=== PATIENT | female | born 1950 | race Caucasian/White ===

== ENCOUNTER 2016-09-04 18:29 | Observation (INO) ==
--- NOTE | 2016-09-04 19:51 | Emergency Department Note ---
Disposition Clinical Impression: Calculus of kidney, UTI (urinary tract infection) Disposition: Admitted As Inpatient Condition: Good Forms: Work/School Release, ED Satisfaction Letter Time of Disposition: 21:29 General Adult HPI - General Chief complaint: ED Abdominal Pain Stated complaint: Flank pain Time Seen by Provider: 09/04/16 19:37 Source: patient Limitations: no limitations Nursing Notes Reviewed: Yes Vital Signs Reviewed: Yes - History of Present Illness HPI Narrative: 7 history of left-sided flank pain. It radiates into her abdomen. Associated nausea but no vomiting. There are no provoking or alleviating factors. Does have a history of kidney stones but states this does not feel as bad as the previous ones. No fevers but does report chills. Pain Scale: 6 - Related Data Home Medications Medication Instructions Recorded Confirmed Cholecalciferol (D-3) [Vitamin D] 1,000 unit PO DAILY 09/04/16 09/04/16 Multivit-Min/Iron/Folic/Lutein 1 tab PO DAILY 09/04/16 09/04/16 [Centrum Silver Women Tablet] Allergies Allergy/AdvReac Type Severity Reaction Status Date / Time No Known Allergies Allergy Verified 09/04/16 18:30 All systems ED: reviewed and negative except as stated. Constitutional: Reports: chills. Denies: fever ENT ED: Denies: congestion Cardiovascular: Denies: chest pain, palpitations, syncope Respiratory: Denies: cough, dyspnea Gastrointestinal: Reports: abdominal pain (Left-sided flank pain), nausea. Denies: vomiting, diarrhea, hematemesis, hematochezia Genitourinary: Denies: urgency, dysuria, frequency Musculoskeletal: Reports: back pain (Left flank) Neurological: Denies: headache, weakness, numbness, paresthesias Past Medical History - Past Medical History Medical history: Reports: no medical history Psychiatric history: Reports: no psych history - Social History Smoking Status: Current every day smoker Smokeless Tobacco Status: No Alcohol use: Reports: none Drug use: Reports: none Physical Exam - General Limitations: no limitations General appearance: alert, in no apparent distress - Head Head exam: atraumatic, normocephalic, normal inspection - Eye Eye exam: Present: normal appearance, PERRL. Absent: scleral icterus - ENT ENT exam: normal exam, normal oropharynx, mucous membranes moist - Neck Neck exam: Present: normal inspection, full ROM, trachea midline. Absent: tenderness, meningismus, lymphadenopathy - Chest Chest inspection: Present: normal inspection, symmetric chest wall rise. Absent : tenderness - Respiratory Respiratory exam: Present: normal lung sounds bilaterally. Absent: respiratory distress, wheezes - Cardiovascular Cardiovascular exam: Present: regular rate, normal rhythm, normal heart sounds - Abdominal Exam Abdominal exam: Present: soft, Non-Tender, normal bowel sounds. Absent: tenderness, distention, guarding, rigidity, organomegaly - Extremities Exam Extremities exam: Present: normal inspection, full ROM, normal capillary refill. Absent: tenderness, pedal edema - Back Exam Back exam: Present: normal inspection, full ROM, CVA tenderness (L). Absent: tenderness, CVA tenderness (R) - Neurological Exam Neurological exam: Present: alert, oriented X3 - Psychiatric Psychiatric exam: Present: normal affect, normal mood - Skin Skin exam: Present: warm, dry, intact, normal color Course Course Narrative: Female patient presenting to the emergency department complaining of left side pain. She is resting comfortably in bed. She states the pain began on Sunday. She did have an episode of diarrhea on Sunday that she took medication for. She said she has since had a very small bowel movement yesterday. She states the pain is in her back and radiates around to her side. She has associated chills and nausea with this. She has not vomited. She does have a history of one kidney stone previously. She states she passed this without any complications. - Reevaluation(s) Reevaluation #1: Patient has a UTI as well as several nonobstructing stones with left-sided hydronephrosis. I talked to Dr. Liu and we will admit patient for UTI and stones with hydronephrosis and begin patient on Rocephin. Patient is agreeable to this. Time: 22:11 - Consultations Consultation #1: Spoke with Dr Liu. he is agreable to admit to the medicine service and place the Pt on Rocephin. Time: 21:28 Vital Signs Temperature 97.6 F 09/04/16 18:30 Pulse Rate 105 09/04/16 18:30 Respiratory Rate 18 09/04/16 18:30 Blood Pressure 111/71 09/04/16 18:30 O2 Sat by Pulse Oximetry 96 09/04/16 18:30 Temperature 97.6 F 09/04/16 18:30 Pulse Rate 105 09/04/16 18:30 Respiratory Rate 18 09/04/16 18:30 Blood Pressure 111/71 09/04/16 18:30 O2 Sat by Pulse Oximetry 96 09/04/16 18:30 Oxygen Delivery Oxygen Delivery Room Air Medical Decision Making - Lab Data Lab Results 09/04/16 Range/Units 19:45 Urine Color Dark Yellow (Yellow) Urine Clarity Turbid A (Clear) Urine pH 6.0 (5.0-8.0) pH Units Ur Specific [place] 1.021 (1.010-1.025) Urine Protein >=300 H (Neg-Trace) mg/dL Urine Glucose (UA) Normal (Normal) mg/dL Urine Ketones Trace H (Negative) mg/dL Urine Blood Large H (Negative) Urine Nitrite Positive A (Negative) Urine Bilirubin Small H (Negative) Urine Urobilinogen Normal (Normal) mg/dL Ur Leukocyte Esterase Large H (Negative) Urine Microscopic WBC Present (0-3) per hpf Urine Bacteria Present (None-Few) per hpf RBC Casts Present H (None Seen) per lpf Ur Culture Indicated? YES A (NO)
[2016-09-04 19:53] LABS: Bilirubin,Urine Small (Negative); Blood,Urine Large (Negative); Clarity,Urine Turbid (Clear); Color,Urine Dark Yellow (Yellow); Glucose,Urine (UA) Normal (Normal); Ketones,Urine Trace mg/dL (Negative); Leukocyte Esterase,Urine Large (Negative); Nitrite,Urine Positive (Negative); Protein,Urine >=300 mg/dL (Neg-Trace); Specific Gravity,Urine 1.021 (1.010-1.025); Urobilinogen,Urine Normal (Normal)
[2016-09-04 20:05] LABS: Bacteria,Urine Present per hpf (None-Few); Red Blood Cell Casts,Urine Present per lpf (None Seen); WBC,Urine Present per hpf (0-3)
[2016-09-04] MEDS ORDERED: Ondansetron 4 MG/2 ML VIAL IVP ONE (20:06)
[2016-09-04] MEDS ORDERED: *HR* FentaNYL (PF) 100 MCG/2 ML VIAL IVP ONE ×2 (20:07→21:24)
[2016-09-04] MEDS ORDERED: 0.9 % Sodium Chloride 1,000 ML IVC ONE (20:11)
[2016-09-04 21:11] LABS: Basophils % 0.2 %; Eosinophils % 0.1 %; Hematocrit 34.4 % (35.3-44.9); Hemoglobin 11.9 g/dL (11.5-15.4); Immature Granulocytes % 0.4 % (0-4); Lymphocytes # 1.8 K/mcL (0.6-4.6); Lymphocytes % 16.3 %; Mean Corpuscular HGB Conc 34.6 g/dL (31.6-35.5); Mean Corpuscular Hemoglobin 30.7 pg (28.0-33.3); Mean Corpuscular Volume 88.9 fL (83.0-100.0); Mean Platelet Volume 11.3 fL (9.4-12.4); Monocytes # 0.7 K/mcL (0.0-1.3); Monocytes % 6.6 %; Neutrophils # 8.4 K/mcL (1.6-8.9); Platelet Count 164 K/mcL (140-400); Red Blood Count 3.87 M/mcL (3.82-4.97); Red Cell Distribution Width 12.8 % (11.5-14.5); Segmented Neutrophils % 76.4 %
--- NOTE | 2016-09-04 21:17 | Emergency Department Note ---
START Narrative - START START: I examined this patient and my medical decision-making was reviewed with the STAFF AIR TACTICAL OFFICER/PA/Advanced Practice Nurse/Resident Physician. I agree with the documented findings, disposition and treatment plan as described except to the extent set forth below.
[2016-09-04 21:24] LABS: BUN/Creatinine Ratio 19 (6-26); Blood Urea Nitrogen 17 mg/dL (7-20); eGFR For African Americans > 60 (> 60); eGFR For Non-African Americans > 60 (> 60)
[2016-09-04 21:26] LABS: Alanine Aminotransferase 13 Units/L (0-55); Albumin 2.7 g/dL (3.5-5.0); Albumin/Globulin Ratio 0.6 (1.1-2.2); Alkaline Phosphatase 77 Units/L (38-126); Aspartate Amino Transferase 13 Units/L (5-34); BUN/Creatinine Ratio 18 (6-26); Bilirubin,Total 0.9 mg/dL (0.2-1.2); Blood Urea Nitrogen 17 mg/dL (7-20); Calcium 8.5 mg/dL (8.6-10.8); Carbon Dioxide 22 mEq/L (19-29); Chloride 104 mEq/L (98-109); Globulin 4.4 g/dL (2.4-3.5); Glucose 101 mg/dL (70-99); Osmolality,Calculated 284 (280-300); Potassium 3.3 mEq/L (3.5-4.5); Sodium 136 mEq/L (136-145); Total Protein 7.1 g/dL (6.0-8.3); eGFR For African Americans > 60 (> 60); eGFR For Non-African Americans > 60 (> 60)
[2016-09-05] MEDS ORDERED: Ondansetron 4 MG/2 ML VIAL IVP PRN ×2 (00:52→13:39)
[2016-09-05] MEDS ORDERED: Naloxone 0.4 MG/ML INJ IVP PRN ×2 (00:52→13:39)
[2016-09-05] MEDS ORDERED: *HR* Morphine 2 MG/ML SYRINGE IVP PRN ×3 (00:52→13:39)
[2016-09-05] MEDS ORDERED: Acetaminophen 325 MG TABLET PO PRN ×2 (00:52→13:39)
[2016-09-05] MEDS ORDERED: 0.9 % Sodium Chloride w KCl 20 MEQ/1,000 ML MLS IVC SCH ×2 (01:00→13:39)
--- NOTE | 2016-09-05 01:08 | Internal Med History&Physical ---
Date of Encounter: 09/05/16 Time of Encounter: 00:25 Assessment and Plan (1) Calculus of kidney Current visit: Yes Status: Acute 1. Will hydrate with IV fluids. 2. Pain control and anti-emetic control with IV medications. 3. Consult urology. (2) Hydronephrosis Current visit: Yes Status: Acute 1. Pt will likely need cystoscopy with ureteral stent placement if she does not pass the stones. 2. Urology already consulted and Dr. Liu will see in the morning. Qualifiers: Hydronephrosis type: with renal calculous obstruction Qualified Code(s): N13.2 - Hydronephrosis with renal and ureteral calculous obstruction (3) UTI (urinary tract infection) Current visit: Yes Status: Acute 1. Urine cultured. 2. Continue IV antibiotics and adjust per culture results. Qualifiers: Urinary tract infection type: acute cystitis Hematuria presence: without hematuria Qualified Code(s): N30.00 - Acute cystitis without hematuria (4) DVT prophylaxis Current visit: Yes Status: Acute 1. Heparin SQ. Internal Medicine - H&P: HPI Chief complaint: nausea; vomiting; flank pain Admitted From: Emergency Dept Plans for Post Hospital Care: Home History of present illness: Ms. Barnard is a 66 year old female who presents with a 5-6 day history of protracted nausea, vomiting, flank pain, and mild dysuria. Symptoms progressed to the point of severe nausea and vomiting and flank pain today. She therefore came to the ER where she was seen and evaluated. Workup included a CT of abdomen and pelvis which revealed urolithiasis with hydronephrosis. Urinalysis also suggest possible UTI. Urology was contacted by ER who recommended admitting patient to hospitalist for medical treatment and consultation to urology for possible cystoscopy and stent placement. Upon my assessment of the patient, she feels much better after some fluids and antiemetic therapy. She reiterates the above history. She denies any fevers or chills. She has had significant nausea and vomiting as noted above. She has a history of kidney stones in the past, but she passed them on her own. Past Med Surg Social Fam HX - Past Medical History Attestation: Yes The following information was validated with the patient. Source: patient, old records reviewed Medical history: no medical history, other (history of kidney stones) Psychiatric history: no psych history - Past Surgical History Surgical History: hysterectomy - Social History Smoking Status: Current every day smoker Smokeless Tobacco Status: No Alcohol use: none Drug use: none Current living situation: Home Activity Level: Independent ambulation Recent Out of Country Travel Within the Last 8 Weeks: No - Family History Mother Living Status: Age at : 82 Cause of : Aspiration Pn. Hx Family Cardiac Disorders: Yes Hx Family Cancer: Yes Father Living Status: Age at : 84 Cause of : Unknown Hx Family Endocrine Disorder: Yes (DM) Internal Medicine - H&P: Meds Cholecalciferol (D-3) [Vitamin D] 1,000 unit PO DAILY 09/04/16 [History] Multivit-Min/Iron/Folic/Lutein [Centrum Silver Women Tablet] 1 tab PO DAILY [History] Allergies No Known Allergies Allergy (Verified 09/04/16 18:30) - Constitutional Constitutional: no chills, no fever(s) - EENT Eyes: no change in vision Ears: no ear pain, no tinnitus Nose, mouth and throat: no nasal congestion, no sinus pressure, no sore throat - Cardiovascular Cardiovascular ROS IM: no chest pain, no diaphoresis, no dyspnea - Respiratory Respiratory: no cough, no hemoptysis - Gastrointestinal Gastrointestinal: constipation, nausea, vomiting, no abdominal pain, no diarrhea , no hematemesis, no hematochezia, no melena - Genitourinary Genitourinary: dysuria, flank pain, no hematuria - Musculoskeletal Musculoskeletal ROS IM: no arthralgias, no muscle cramps - Integumentary Integumentary IM: no rash, no jaundice - Neurological Neurological ROS: no dizziness, no focal weakness, no frequent falls, no headache(s) - Endocrine Endocrine IM: no polydipsia, no polyuria - Hematologic/Lymphatic Hematologic/Lymphatic: no easy bruising, no lymphadenopathy - Allergic/Immunologic Allergic/Immunologic: no wheezing, no GI upset with certain foods - Constitutional Vitals: Temp Pulse Resp BP Pulse Ox 98.4 F 67 16 92/55 95 09/04/16 22:34 09/04/16 22:34 09/04/16 22:34 09/04/16 22:34 09/04/16 22:34 General appearance: Present: cooperative, A&O X 3, pleasant, no acute distress, answers questions appropriately - Head Head exam: Present: atraumatic, normal inspection - Expanded Head Exam Head exam expanded: Absent: abrasion, contusion - Eye Eye exam: Present: EOMI, normal appearance, PERRL. Absent: scleral icterus Pupils: Present: normal accommodation - ENT ENT exam: Present: mucous membranes dry, normal exam, normal oropharynx - Neck Neck exam general surgery: Present: full ROM, supple. Absent: lymphadenopathy, tenderness - Respiratory Respiratory exam: Present: CTAB. Absent: chest wall tenderness, rales, rhonchi , wheezes - Cardiovascular Cardiovascular exam: Present: RRR, +S1, +S2. Absent: diastolic murmur, systolic murmur - GI/Abdominal GI/Abdominal exam: Present: normal bowel sounds, soft, tenderness (mild left middle/lower quadrant pain), no peritoneal signs. Absent: guarding, hepatomegaly, mass, rebound, splenomegaly - Extremities Exam Extremities exam: Present: full ROM, warm, radial pulses palpable and symetrical. Absent: calf tenderness, joint swelling, tenderness - Back Exam Back exam: Present: CVA tenderness (L), normal inspection. Absent: CVA tenderness (R) - Neurological Exam Neurological exam: Present: alert, CN II-XII intact, oriented X3, no focal deficits, strengths equal and symetr throughout - Psychiatric Psychiatric exam: Present: normal affect, normal mood - Skin Skin exam: Present: dry, warm. Absent: rash Internal Med - H&P Results - Labs CBC & Chem 7: 09/04/16 21:04 09/04/16 21:04 - Diagnostic Studies CT scan - abdomen Additional comments: CT report reviewed: 2-3 distal left UVJ calculi with moderate hydronephrosis
[2016-09-05 05:48] LABS: Basophils % 0.1 %; Eosinophils % 0.2 %; Hematocrit 35.1 % (35.3-44.9); Hemoglobin 12.2 g/dL (11.5-15.4); Immature Granulocytes % 0.4 % (0-4); Lymphocytes # 1.2 K/mcL (0.6-4.6); Lymphocytes % 13.1 %; Mean Corpuscular HGB Conc 34.8 g/dL (31.6-35.5); Mean Corpuscular Hemoglobin 30.5 pg (28.0-33.3); Mean Corpuscular Volume 87.8 fL (83.0-100.0); Monocytes # 0.8 K/mcL (0.0-1.3); Monocytes % 8.5 %; Neutrophils # 7.2 K/mcL (1.6-8.9); Platelet Count 162 K/mcL (140-400); Red Cell Distribution Width 12.7 % (11.5-14.5); Segmented Neutrophils % 77.7 %
[2016-09-05 05:49] LABS: INR 1.4
[2016-09-05 05:52] LABS: Activated Partial Thrombo Time 27.2 Seconds (26.0-36.0)
[2016-09-05] MEDS ORDERED: *HR* Heparin 5,000 UNIT/ML VIAL SQ SCH ×2 (06:00→18:00)
[2016-09-05 06:03] LABS: Alanine Aminotransferase 13 Units/L (0-55); Albumin 2.7 g/dL (3.5-5.0); Albumin/Globulin Ratio 0.6 (1.1-2.2); Alkaline Phosphatase 78 Units/L (38-126); Aspartate Amino Transferase 14 Units/L (5-34); BUN/Creatinine Ratio 21 (6-26); Bilirubin,Total 0.7 mg/dL (0.2-1.2); Blood Urea Nitrogen 16 mg/dL (7-20); Calcium 8.4 mg/dL (8.6-10.8); Carbon Dioxide 20 mEq/L (19-29); Chloride 107 mEq/L (98-109); Globulin 4.4 g/dL (2.4-3.5); Glucose 101 mg/dL (70-99); Magnesium 1.3 mg/dL (1.6-2.6); Osmolality,Calculated 285 (280-300); Potassium 3.3 mEq/L (3.5-4.5); Sodium 137 mEq/L (136-145); Total Protein 7.1 g/dL (6.0-8.3); eGFR For African Americans > 60 (> 60); eGFR For Non-African Americans > 60 (> 60)
--- NOTE | 2016-09-05 07:12 | Urology - Consult Note ---
Date of Encounter: 09/05/16 Time of Encounter: 07:09 - Assessment and Plan (1) Left ureteral stone Current Visit: Yes Status: Acute Assessment and plan: will plan on left ureterosopic stone extraction today. Urology CN:NEETA Consult date: 09/05/16 Reason for consult Urology: Other (left flank pain) Requesting physician: Donny Torres History of present illness: Dulce is a 66-year-old female who presented to the emergency department last night secondary to severe left-sided flank pain and persistent nausea. Patient was found to have distal multiple ureteral stones on the left side. She did have proximal hydronephrosis. She did have a low-grade fever last night. Past Med Surg Social Fam HX - Past Medical History Medical history: no medical history, other (history of kidney stones) Psychiatric history: no psych history - Past Surgical History Surgical History: hysterectomy - Social History Smoking Status: Current every day smoker Smokeless Tobacco Status: No Alcohol use: none Drug use: none - Family History Mother Living Status: Age at : 82 Cause of : Aspiration Pn. Hx Family Cardiac Disorders: Yes Hx Family Cancer: Yes Father Living Status: Age at : 84 Cause of : Unknown Hx Family Endocrine Disorder: Yes (DM) Medications and Allergies Cholecalciferol (D-3) [Vitamin D] 1,000 unit PO DAILY 09/04/16 [History] Multivit-Min/Iron/Folic/Lutein [Centrum Silver Women Tablet] 1 tab PO DAILY [History] Allergies No Known Allergies Allergy (Verified 09/04/16 18:30) Review of Systems - Constitutional fever(s) - EENT Nose, mouth and throat: no dizziness - Cardiovascular no chest pain - Respiratory no cough Exam Initial Vital Signs Temp Pulse Resp BP Pulse Ox 97.6 F 105 18 111/71 96 09/04/16 18:30 09/04/16 18:30 09/04/16 18:30 09/04/16 18:30 09/04/16 18:30 - General physical appearance Present: well developed - Respiratory Present: normal respiratory effort - Cardiovascular Cardiovascular exam IM: RRR Urology Results - Labs 09/05/16 05:02 09/05/16 05:02 Abnormal lab results Hct 35.1 % (35.3-44.9) L 09/05/16 05:02 PT 15.0 Seconds (9.4-12.1) H 09/05/16 05:02 Potassium 3.3 mEq/L (3.5-4.5) L 09/05/16 05:02 Glucose 101 mg/dL (70-99) H 09/05/16 05:02 POC Glucose 117 (58-89) H 09/05/16 06:00 Calcium 8.4 mg/dL (8.6-10.8) L 09/05/16 05:02 Magnesium 1.3 mg/dL (1.6-2.6) L 09/05/16 05:02 Albumin 2.7 g/dL (3.5-5.0) L 09/05/16 05:02 Globulin 4.4 g/dL (2.4-3.5) H 09/05/16 05:02 Albumin/Globulin Ratio 0.6 (1.1-2.2) L 09/05/16 05:02 Urine Clarity Turbid (Clear) A 09/04/16 19:45 Urine Protein >=300 mg/dL (Neg-Trace) H 09/04/16 19:45 Urine Ketones Trace mg/dL (Negative) H 09/04/16 19:45 Urine Blood Large (Negative) H 09/04/16 19:45 Urine Nitrite Positive (Negative) A 09/04/16 19:45 Urine Bilirubin Small (Negative) H 09/04/16 19:45 Ur Leukocyte Esterase Large (Negative) H 09/04/16 19:45 RBC Casts Present per lpf (None Seen) H 09/04/16 19:45 Ur Culture Indicated? YES (NO) A 09/04/16 19:45 Diabetes panel 09/05/16 Range/Units 05:02 Sodium 137 (136-145) mEq/L Potassium 3.3 L (3.5-4.5) mEq/L Chloride 107 (98-109) mEq/L Carbon Dioxide 20 (19-29) mEq/L BUN 16 (7-20) mg/dL Creatinine 0.78 (0.57-1.11) mg/dL Glucose 101 H (70-99) mg/dL Calcium 8.4 L (8.6-10.8) mg/dL AST 14 (5-34) Units/L ALT 13 (0-55) Units/L Alkaline Phosphatase 78 (38-126) Units/L Albumin 2.7 L (3.5-5.0) g/dL Calcium panel 09/05/16 Range/Units 05:02 Calcium 8.4 L (8.6-10.8) mg/dL Albumin 2.7 L (3.5-5.0) g/dL Pituitary panel 09/05/16 Range/Units 05:02 Sodium 137 (136-145) mEq/L Potassium 3.3 L (3.5-4.5) mEq/L Chloride 107 (98-109) mEq/L Carbon Dioxide 20 (19-29) mEq/L BUN 16 (7-20) mg/dL Creatinine 0.78 (0.57-1.11) mg/dL Glucose 101 H (70-99) mg/dL Calcium 8.4 L (8.6-10.8) mg/dL Adrenal panel 09/05/16 Range/Units 05:02 Sodium 137 (136-145) mEq/L Potassium 3.3 L (3.5-4.5) mEq/L Chloride 107 (98-109) mEq/L Carbon Dioxide 20 (19-29) mEq/L BUN 16 (7-20) mg/dL Creatinine 0.78 (0.57-1.11) mg/dL Glucose 101 H (70-99) mg/dL Calcium 8.4 L (8.6-10.8) mg/dL Total Bilirubin 0.7 (0.2-1.2) mg/dL AST 14 (5-34) Units/L ALT 13 (0-55) Units/L Alkaline Phosphatase 78 (38-126) Units/L Albumin 2.7 L (3.5-5.0) g/dL All other labs normal. - Imaging CT scan - abdomen: image reviewed CT scan - pelvis: image reviewed Consult Discharge Plan - Plan Referrals: Maximino Miguel MD [Primary Care Provider] -
--- NOTE | 2016-09-05 11:05 | Anesthesia Evaluation PreOp ---
Date of Encounter: 09/05/16 Time of Encounter: 11:00 - Past History Planned Operation: left USE with laser Cardiac History: Denies any Significant Hx Pulmonary History: Smoker NAILHEAD OPERATOR History: Denies Any Significant HX Other Medical History: Renal (kidney stones) Anesthesia History: No Prior Anesthetic Complications, Past Anesthesia (SHIV) : No Alcohol Use: none Drug use: none Medications and Allergies Cholecalciferol (D-3) [Vitamin D] 1,000 unit PO DAILY 09/04/16 [History] Multivit-Min/Iron/Folic/Lutein [Centrum Silver Women Tablet] 1 tab PO DAILY [History] Allergies No Known Allergies Allergy (Verified 09/04/16 18:30) - Meds/Allergy Pre-op Review Medications Reviewed: Yes Allergies Reviewed: Yes Beta Blockers on Current Med List: No Anesthesia Results - Labs 09/05/16 05:02 09/05/16 05:02 Anesthesia Exam Laboratory Tests 09/05/16 09/05/16 09/05/16 05:02 05:02 05:02 Hgb 12.2 Hct 35.1 L PT 15.0 H INR 1.4 APTT 27.2 Sodium 137 Potassium 3.3 L BUN 16 Creatinine 0.78 Weight: 61kg NPO (# of Hours): 8 Pain Scale: 3 Pain Scale Used: Numeric (1 - 10) - HEENT Pupil (Motor): EOMI Mallampati: II Teeth: Normal Oral Opening: Greater than 3 - NAILHEAD OPERATOR LOC: Oriented NAILHEAD OPERATOR Motor: Normal RUE, Normal LUE, Normal RLE, Normal LLE, Normal Face NAILHEAD OPERATOR Sensory: Normal: RUE, LUE, RLE, LLE, Face - Cardiac Rhythm: Regular Murmur: None - Pulmonary Breath Sounds: bilateral Clear Respiratory Effort: Symmetrical Anesthesia Assess/Plan ASA Score: 2 Modified Wilian Scale for Level of Consciousness: Cooperative, oriented, and tranquil Anesthetic Plan: General Monitoring Plan: Standard Monitors Recovery Plan: PACU (Discussed risks of GA, questions answereda and agrees to proceed.)
[2016-09-05] MEDS ORDERED: *HR* Midazolam HCl 2 MG/2 ML VIAL ONE (11:43)
[2016-09-05] MEDS ORDERED: Lidocaine -MPF 2% 2 ML VIAL ONE (11:43)
[2016-09-05] MEDS ORDERED: *HR* Propofol 200 MG/20 ML VIAL IVP ONE (11:43)
[2016-09-05] MEDS ORDERED: *HR* FentaNYL (PF) 100 MCG/2 ML VIAL ONE (11:43)
[2016-09-05] MEDS ORDERED: Ondansetron 4 MG/2 ML VIAL IVP ONE (11:46)
[2016-09-05] MEDS ORDERED: *HR* Promethazine 25 MG/ML VIAL IVP PRN (11:46)
[2016-09-05] MEDS ORDERED: *HR* HYDROmorphone (PF) 1 MG/ML SYRINGE IVP PRN (11:46)
--- NOTE | 2016-09-05 11:56 | Operative Note ---
Date of procedure: 09/05/16 Pre-op diagnosis: left distal ureteral stone Post-op diagnosis: same Procedure: Left ureteroscopic laser lithotripsy of stone, left ureteroscopic basket retrieval stone fragment Anesthesia: GETA Surgeon: Sumit Liu Specimen: Left ureteral stone Condition: stable Disposition: PACU Procedure in Detail: Patient was prepped and draped in normal sterile fashion. Timeout procedure performed. I then inserted the short semirigid ureteroscope into the patient's bladder. The left ureteral orifice was cannulated. I encountered a distal 5 mm stone. I then used the holmium laser to fragment the stone. All stone fragments were then removed using a basket device. Bladder was drained procedure was ended
[2016-09-05] MEDS ORDERED: Dexamethasone 4 MG/ML VIAL ONE (12:20)
[2016-09-05] MEDS ORDERED: Ketorolac 30 MG/ML VIAL ONE (12:20)
[2016-09-05] MEDS ORDERED: EPHEDrine 50 MG/ML VIAL ONE (12:20)
[2016-09-05] MEDS ORDERED: Ringers Solution, Lactated 1,000 ML ONE (12:20)
[2016-09-05] MEDS ORDERED: Ondansetron 4 MG/2 ML VIAL ONE (12:20)
--- NOTE | 2016-09-05 13:05 | Anesthesia Evaluation Post Op ---
Date of Encounter: 09/05/16 Time of Encounter: 12:45 - Vital Signs Vital Signs: Vital Signs/O2 Sat/Glucose, Most Current Temp Pulse Resp BP Pulse Ox 09/05/16 12:42 97.2 F L 76 16 98/58 97 09/05/16 12:32 97.1 F L 83 16 108/56 93 09/05/16 12:22 86 16 96/55 95 09/05/16 12:12 78 12 94/61 100 09/05/16 12:02 97.4 F L 80 12 94/56 92 - Lungs Lungs: Clear Ascult./Percussion - Airway Airway: Non-obstructed - Cardiovascular Regular Rate - Mental Status Mental Status: Alert & Oriented, Answers Appropriately - Pain Pain Scale: 0 - Nausea Vomiting Nausea Vomiting: Not Present - Hydration Hydration: Ice chips - Discharge PostOp Status: Transfer Patient to floor
--- NOTE | 2016-09-05 15:29 | Event Note ---
Date of Encounter: 09/05/16 Time of Encounter: 10:45 Patient is feeling better compared to yesterday. Still having some nausea. Is scheduled to undergo ureteroscopy and stone retrieval later today. On IV antibiotics at this time empirically
[2016-09-05 16:11] VITALS: BP 107/66
== END 2016-09-05 16:37 | disposition left against medical advice (07) ==
LOC: EMEROO 18:29 → 3ANU 18:29 → SUATTDRO 21:53 → 3ANU 22:15
PROVIDERS: ADMIT Pediatrics; ATTEND Internal Medicine